=== PATIENT | male | born 1930 | race Caucasian/White ===

== ENCOUNTER 2017-01-20 15:17 | Emergency (ER) | payer OTHER ==
--- NOTE | 2017-01-20 16:52 | DIAGNOSTIC IMAGING REPORT ---
PROCEDURE: XR ABDOMEN 1 VIEW INDICATION: OBSTRUCTION TECHNIQUE: Single view upright abdomen. COMPARISON: 03/27/2012 FINDINGS: No free intraperitoneal air. Moderately increased amount of stool in the colon. Scattered air-fluid levels in nondilated, centralized small bowel loops. Plate-like right base atelectatic change. No suspicious calcifications or unusual abdominal mass effect. Intact osseous structures with mild degenerative endplate spurring. IMPRESSION: 1. Nonspecific bowel gas pattern with centralized fluid levels suggestive of ileus. 2. Gas and stool throughout the colon.
--- NOTE | 2017-01-20 17:32 | ED ORDER SUMMARY ---
..... Patient: KIRBY ARAGON OrderSheet [facility] VisitID: [id number] [place] [address] 86y, M Registration Date/Time: 01/20/2017 ORDER SHEET Weight: 98.8 kg (stated) Allergies: Morphine and Related GENERAL ORDERS: Abdomen 1V Urgent (16:13 01/20/2017 Lulú Ballard) (Ack 16:28 Gorge) (17:38 Stacy Roldan) MEDICATION ORDERS: - (enema of choice, may need to repeat (2 in total)) (16:13 01/20/2017 Lulú Ballard) (Ack 16:15 Lj) (Cancelled: Other17:12 Lj) IV FLUIDS: ORDER SHEET NOTES: [Electronically signed by Samson Gutierrez R.N. (17:42 01/20/2017)] [Electronically signed by Renuka Brown P.A.-C (17:58 01/20/2017)] [Electronically locked/signed by Samson Gutierrez R.N. (17:42 01/20/2017)]
--- NOTE | 2017-01-20 17:32 | ED CLINICAL REPORT ---
Clinical Report - Physicians/Mid Levels [facility] [address] [place] [address] 01/20/2017 15:20 [id number] Time Seen: 16:16 Jan 20 2017. Arrived- By private vehicle. Historian- patient. HISTORY OF PRESENT ILLNESS Chief Complaint: RECTAL PAIN. 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 The patient has had rectal pain but not had rectal bleeding. (patient presents with rectal pain for the last 4-5 days, patient has been recently on antibiotics over the last 8 days, he reports history of similar, having to be hospitalized previously appears in the past, for prolonged period of time due to constipation. Has been taking MiraLAX at home, which was working well previously, and now is having difficulty moving his bowels.). REVIEW OF SYSTEMS No dizziness, fainting episodes or blurred vision. All systems otherwise negative, except as recorded above. PAST HISTORY Problems: Immunizations. Constipation. Abdominal Pain. Prostate Disease. Hypercholesterolemia. Hypertension. Kidney disease. Additional Surgeries: Back Surgery. Colonoscopy. Hemorrhoidectomy. Hernia Repair. Neck Surgery. Shoulder Surgery. Medications: Atorvastatin Calcium Oral. Aspirin Oral. Finasteride Oral. MiraLax Oral. Lisinopril Oral 5 mg, daily. Allergies: Morphine and Related. (after shoulder surgery couldn't urinate). SOCIAL HISTORY Never smoker. No alcohol use or drug use. ADDITIONAL NOTES The nursing notes have been reviewed. PHYSICAL EXAM Vital Signs: 01/20/2017 16:15 BP: 138/81. HR: 67. RR: 18. O2 saturation: 99%. Temp: 98.1 F. Appearance: Alert. ENT: Nose normal. Pharynx normal. Neck: Normal inspection. CVS: Normal heart rate and rhythm. Heart sounds normal. Respiratory: No respiratory distress. Breath sounds normal. Back: Normal inspection. Rectal: Tender digital exam. Light brown stool. Rectal exam normal and nontender. (chaperoned exam with AMARA ALVARADO, midly hard stool in rectum, loosened). Skin: Skin warm. Normal skin color. Neuro: Oriented X 3. LABS, X-RAYS, AND EKG KUB: (IMPRESSION: 1. Nonspecific bowel gas pattern with centralized fluid levels suggestive of ileus. 2. Gas and stool throughout the colon. Electronically Final signed by:Antoinette Cavazos MD 01/20/2017 4:52:50 PM). PROGRESS AND PROCEDURES Course of Care: patient had a very large bowel movement output in the emergency department with enema, and this discharged home after improvement of his symptoms. Patient is stable. Symptoms better. Patient/family counseled. Disposition: Discharged. Condition: good. CLINICAL IMPRESSION Constipation INSTRUCTIONS OTC Medications: Colace 100 mg capsules (available over the counter): take 1 capsule orally, twice daily and for 10 days, as needed for constipation. No refill. Follow-up: Follow up with your doctor in three days. Understanding of the discharge instructions verbalized. (Electronically signed by Renuka Brown P.A.-C 01/20/2017 17:58)
--- NOTE | 2017-01-20 17:32 | ED ORDER SUMMARY ---
..... Patient: KIRBY ARAGON OrderSheet [facility] VisitID: [id number] [place] [address] 86y, M Registration Date/Time: 01/20/2017 ORDER SHEET Weight: 98.8 kg (stated) Allergies: Morphine and Related GENERAL ORDERS: Abdomen 1V Urgent (16:13 01/20/2017 Lulú Ballard) (Ack 16:28 Gorge) (17:38 Stacy Roldan) MEDICATION ORDERS: - (enema of choice, may need to repeat (2 in total)) (16:13 01/20/2017 Lulú Ballard) (Ack 16:15 Lj) (Cancelled: Other17:12 Lj) IV FLUIDS: ORDER SHEET NOTES: [Electronically signed by Samson Gutierrez R.N. (17:42 01/20/2017)] [Electronically signed by Renuka Brown P.A.-C (17:58 01/20/2017)] [Electronically locked/signed by Samson Gutierrez R.N. (17:42 01/20/2017)]
--- NOTE | 2017-01-20 17:32 | ED NURSING NOTES ---
Clinical Report - Nurses [facility] [address] [place] [address] 01/20/2017 15:20 Patient: KIRBY ARAGON TRIAGE Triage time 16:00 Jan 20 2017. Acuity: LEVEL 3. Chief Complaint: ABDOMINAL PAIN and CONSTIPATION. Alert. ULISSES COMA SCORE: [place] Coma Scale: 15- eyes open spontaneously (4); best verbal response- oriented x 4 (5); best motor response- obeys commands (6). --16:11 Norris Perkins R.N. 16:15 01/20/17. BP: 138/81. HR: 67. RR: 18. O2 saturation: 99%. Temp: 98.1 F. Pain level now 8/10. --16:16 Kiley Torres. Weight: 98.8 kg stated. Height/Length: 71 inches Per Patient. BMI: 30.4. --16:09 Norris Perkins R.N. Medications Lisinopril Oral 5 mg, daily. --16:05 Norris Perkins R.N. Finasteride Oral. MiraLax Oral. --16:06 Norris Perkins R.N. Aspirin Oral. --16:06 Norris Perkins R.N. Atorvastatin Calcium Oral. --16:06 Norris Perkins R.N. Allergies Morphine and Related. (after shoulder surgery couldn't urinate) --16:05 Norris Perkins R.N. Medication/allergy information source: the patient. --16:11 Norris Perkins R.N. History Arrived by private vehicle. Historian: patient. Unaccompanied. Primary physician (Stevie). ( Abdominal Pain. Pt thinks that he is constipated not having a BM in 5 days. Pt states that he was taking an antibiotic for a UTI and that always makes him constipated). Onset. (about 5 days ago). He has had constipation and abdominal pain. 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 SOCIAL HX: Smoker- current status unknown. History of drug use: marijuana. No alcohol use. No infectious disease exposure. ABUSE ASSESSMENT: No report of abuse. FALL RISK ASSESSMENT: Fall risk assessment completed. No fall risk identified. NUTRITIONAL RISK ASSESSMENT: The nutritional risk assessment revealed no deficiencies. FUNCTIONAL ASSESSMENT: Functional assessment: no impairments noted. LEARNING NEEDS ASSESSMENT: The learning needs assessment revealed no barriers. SKIN INTEGRITY ASSESSMENT: Skin integrity risk assessment completed. No skin integrity risk identified. --16:11 Norris Perkins R.N. PROBLEMS: Immunizations. Constipation. Abdominal Pain. Prostate Disease. Hypercholesterolemia. Hypertension. Kidney disease. --16:10 Norris Perkins R.N. ADDITIONAL SURGERIES: Back Surgery. Colonoscopy. Hemorrhoidectomy. Hernia Repair. Neck Surgery. Shoulder Surgery. --16:10 Norris Perkins R.N. Interventions ID band on patient. To treatment room. --16:11 Norris Perkins R.N. NURSING PROGRESS NOTES 17:19 01/20/2017 Soap suds enema * [place] qty 1 give one, may need two --17:19 Kiley Torres 17:40 01/20/17. ( Pt had large soft BM). --17:40 Samson Gutierrez R.N. DISPOSITION / DISCHARGE 17:40 01/20/17. Condition at departure: improved. The goals identified in the patient's plan of care were met. No learning barriers present. Discharge instructions provided and reviewed with the patient. Reviewed warnings. Reviewed medication(s). Treatments reviewed. Patient verbalized understanding. Written instructions provided in Persian. The patient was discharged by the physician ophthalmology assistant. He was discharged home. He left the Emergency Department ambulatory. Patient driving. FALL RISK ASSESSMENT: Fall risk assessment completed. No fall risk identified. --17:40 Samson Gutierrez R.N. 17:38 01/20/17. BP: 134/78. HR: 80. RR: 16. O2 saturation: 99% on room air. Temp: 98.2 F (oral). Pain level now: 0/10. --17:40 Samson Gutierrez R.N. 17:40 01/20/17. Departure time: 17:40 Jan 20 2017. --17:40 Samson Gutierrez R.N. Locked/Released at 01/20/2017 17:42 by Samson Gutierrez R.N.
--- NOTE | 2017-01-20 17:32 | ED CLINICAL REPORT ---
Clinical Report - Physicians/Mid Levels [facility] [address] [place] [address] 01/20/2017 15:20 [id number] Time Seen: 16:16 Jan 20 2017. Arrived- By private vehicle. Historian- patient. HISTORY OF PRESENT ILLNESS Chief Complaint: RECTAL PAIN. 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 The patient has had rectal pain but not had rectal bleeding. (patient presents with rectal pain for the last 4-5 days, patient has been recently on antibiotics over the last 8 days, he reports history of similar, having to be hospitalized previously appears in the past, for prolonged period of time due to constipation. Has been taking MiraLAX at home, which was working well previously, and now is having difficulty moving his bowels.). REVIEW OF SYSTEMS No dizziness, fainting episodes or blurred vision. All systems otherwise negative, except as recorded above. PAST HISTORY Problems: Immunizations. Constipation. Abdominal Pain. Prostate Disease. Hypercholesterolemia. Hypertension. Kidney disease. Additional Surgeries: Back Surgery. Colonoscopy. Hemorrhoidectomy. Hernia Repair. Neck Surgery. Shoulder Surgery. Medications: Atorvastatin Calcium Oral. Aspirin Oral. Finasteride Oral. MiraLax Oral. Lisinopril Oral 5 mg, daily. Allergies: Morphine and Related. (after shoulder surgery couldn't urinate). SOCIAL HISTORY Never smoker. No alcohol use or drug use. ADDITIONAL NOTES The nursing notes have been reviewed. PHYSICAL EXAM Vital Signs: 01/20/2017 16:15 BP: 138/81. HR: 67. RR: 18. O2 saturation: 99%. Temp: 98.1 F. Appearance: Alert. ENT: Nose normal. Pharynx normal. Neck: Normal inspection. CVS: Normal heart rate and rhythm. Heart sounds normal. Respiratory: No respiratory distress. Breath sounds normal. Back: Normal inspection. Rectal: Tender digital exam. Light brown stool. Rectal exam normal and nontender. (chaperoned exam with AMARA ALVARADO, midly hard stool in rectum, loosened). Skin: Skin warm. Normal skin color. Neuro: Oriented X 3. LABS, X-RAYS, AND EKG KUB: (IMPRESSION: 1. Nonspecific bowel gas pattern with centralized fluid levels suggestive of ileus. 2. Gas and stool throughout the colon. Electronically Final signed by:Antoinette Cavazos MD 01/20/2017 4:52:50 PM). PROGRESS AND PROCEDURES Course of Care: patient had a very large bowel movement output in the emergency department with enema, and this discharged home after improvement of his symptoms. Patient is stable. Symptoms better. Patient/family counseled. Disposition: Discharged. Condition: good. CLINICAL IMPRESSION Constipation INSTRUCTIONS OTC Medications: Colace 100 mg capsules (available over the counter): take 1 capsule orally, twice daily and for 10 days, as needed for constipation. No refill. Follow-up: Follow up with your doctor in three days. Understanding of the discharge instructions verbalized. (Electronically signed by Renuka Brown P.A.-C 01/20/2017 17:58)
--- NOTE | 2017-01-20 17:32 | ED NURSING NOTES ---
Clinical Report - Nurses [facility] [address] [place] [address] 01/20/2017 15:20 Patient: KIRBY ARAGON TRIAGE Triage time 16:00 Jan 20 2017. Acuity: LEVEL 3. Chief Complaint: ABDOMINAL PAIN and CONSTIPATION. Alert. ULISSES COMA SCORE: [place] Coma Scale: 15- eyes open spontaneously (4); best verbal response- oriented x 4 (5); best motor response- obeys commands (6). --16:11 Norris Perkins R.N. 16:15 01/20/17. BP: 138/81. HR: 67. RR: 18. O2 saturation: 99%. Temp: 98.1 F. Pain level now 8/10. --16:16 Kiley Torres. Weight: 98.8 kg stated. Height/Length: 71 inches Per Patient. BMI: 30.4. --16:09 Norris Perkins R.N. Medications Lisinopril Oral 5 mg, daily. --16:05 Norris Perkins R.N. Finasteride Oral. MiraLax Oral. --16:06 Norris Perkins R.N. Aspirin Oral. --16:06 Norris Perkins R.N. Atorvastatin Calcium Oral. --16:06 Norris Perkins R.N. Allergies Morphine and Related. (after shoulder surgery couldn't urinate) --16:05 Norris Perkins R.N. Medication/allergy information source: the patient. --16:11 Norris Perkins R.N. History Arrived by private vehicle. Historian: patient. Unaccompanied. Primary physician (Stevie). ( Abdominal Pain. Pt thinks that he is constipated not having a BM in 5 days. Pt states that he was taking an antibiotic for a UTI and that always makes him constipated). Onset. (about 5 days ago). He has had constipation and abdominal pain. 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 SOCIAL HX: Smoker- current status unknown. History of drug use: marijuana. No alcohol use. No infectious disease exposure. ABUSE ASSESSMENT: No report of abuse. FALL RISK ASSESSMENT: Fall risk assessment completed. No fall risk identified. NUTRITIONAL RISK ASSESSMENT: The nutritional risk assessment revealed no deficiencies. FUNCTIONAL ASSESSMENT: Functional assessment: no impairments noted. LEARNING NEEDS ASSESSMENT: The learning needs assessment revealed no barriers. SKIN INTEGRITY ASSESSMENT: Skin integrity risk assessment completed. No skin integrity risk identified. --16:11 Norris Perkins R.N. PROBLEMS: Immunizations. Constipation. Abdominal Pain. Prostate Disease. Hypercholesterolemia. Hypertension. Kidney disease. --16:10 Norris Perkins R.N. ADDITIONAL SURGERIES: Back Surgery. Colonoscopy. Hemorrhoidectomy. Hernia Repair. Neck Surgery. Shoulder Surgery. --16:10 Norris Perkins R.N. Interventions ID band on patient. To treatment room. --16:11 Norris Perkins R.N. NURSING PROGRESS NOTES 17:19 01/20/2017 Soap suds enema * ID qty 1 give one, may need two --17:19 Kiley Torres 17:40 01/20/17. ( Pt had large soft BM). --17:40 Samson Gutierrez R.N. DISPOSITION / DISCHARGE 17:40 01/20/17. Condition at departure: improved. The goals identified in the patient's plan of care were met. No learning barriers present. Discharge instructions provided and reviewed with the patient. Reviewed warnings. Reviewed medication(s). Treatments reviewed. Patient verbalized understanding. Written instructions provided in Turkmen. The patient was discharged by the physician faculty i on call medical assistant. He was discharged home. He left the Emergency Department ambulatory. Patient driving. FALL RISK ASSESSMENT: Fall risk assessment completed. No fall risk identified. --17:40 Samson Gutierrez R.N. 17:38 01/20/17. BP: 134/78. HR: 80. RR: 16. O2 saturation: 99% on room air. Temp: 98.2 F (oral). Pain level now: 0/10. --17:40 Samson Gutierrez R.N. 17:40 01/20/17. Departure time: 17:40 Jan 20 2017. --17:40 Samson Gutierrez R.N. Locked/Released at 01/20/2017 17:42 by Samson Gutierrez R.N.
--- NOTE | 2017-01-20 17:58 | ED MED RECONCILIATION SUMMARY ---
Patient: KIRBY ARAGON Medication Reconciliation Report [facility] VisitID: [id number] [address] [place] [address] 86y, M Registration Date/Time: 01/20/2017 Weight: 98.8 kg Height/Length: 71 in. BMI: 30.4 ALLERGIES: Morphine and Related The patient's Home Medications are listed below: THE FOLLOWING MEDICATIONS NEED TO BE RECONCILED: Aspirin Oral Atorvastatin Calcium Oral Finasteride Oral Lisinopril Oral 5 mg, daily MiraLax Oral The source(s) of the original Home Medication information: patient The following Medications were given to the patient in the Emergency Department: Soap suds enema MD qty 1, administered: 01/20/2017 5:19:00 PM The following Medications were prescribed to the patient: Colace 100 mg capsules (available over the counter): take 1 capsule orally, twice daily and for 10 days, as needed for constipation. No refill. -- Renuka Brown, PMatthiasA.-C
--- NOTE | 2017-01-20 17:58 | ED DISCHARGE INSTRUCTIONS ---
Patient: KIRBY ARAGON General Instructions [facility] VisitID: [id number] [place] [address] 86y, M Registration Date/Time: 01/20/2017 Constipation INSTRUCTIONS OTC Medications: Colace 100 mg capsules (available over the counter): take 1 capsule orally, twice daily and for 10 days, as needed for constipation. No refill. Follow-up: Follow up with your doctor in three days. Understanding of the discharge instructions verbalized. ADDITIONAL INFORMATION Constipation (Adult) Constipation is bowel movements that are less frequent than usual. Stools often become very hard and difficult to pass. This may lead to abdominal pain and bloating. It may also cause painful bowel movements. Constipation may be due to a diet thats low in fiber. Some medications, especially pain medications, can also cause it. Constipation may be treated with enemas, suppositories, laxatives or stool softeners. Your doctor will advise you which will work best for you. Follow the advice below to help avoid this problem in the future. Home Care Medication: Take any medicines as directed. Some laxatives are safe only for occasional use. Others can be taken on a regular basis. Talk to your doctor or pharmacist if you have questions. General Care: Prescription pain medications can cause constipation. If you are prescribed pain medications, ask the doctor whether you should also take a stool softener. A diet high in fiber with plenty of fluids helps to maintain regular, soft bowel movements. The following foods are good sources of dietary fiber: Cereals and breads: Whole grain cereal with bran, oatmeal, rolled oats, whole grain breads Fruits: All fruits (fresh and dried), raisins, prunes, apricots, berries, figs Vegetables: Any fresh vegetables, especially peas, broccoli, brussels sprouts, winter squash, green beans, cauliflower, wright beans, carrots Other: Popcorn, brown rice Drink plenty of water when you increase the amount of fiber you eat. Follow Up with your doctor or return to this facility if symptoms do not improve in the next few days. You may require further tests or a referral to a specialist. Get Prompt Medical Attention if any of the following occur: Fever over 100.4F (38C) Failure to resume normal bowel movements Increasing abdominal or back pain Nausea or vomiting Abdominal swelling Blood in the stool Weakness, dizziness or fainting Unexpected vaginal bleeding Fecal Impaction (Treated) Fecal Impaction is a severe form of constipation. There is a large amount of hard stool in the rectum that cannot be passed. Although your impaction has been relieved, it may be necessary to continue treatment at home as advised by your doctor. Follow the advice below to help avoid this problem in the future. Home Care Medication: Take any medicines as directed. Some laxatives are safe only for occasional use. Others can be taken on a regular basis. Talk to your doctor or pharmacist if you have questions. General Care: Prescription pain medications can cause constipation. If you are prescribed pain medications, ask the doctor whether you should also take a stool softener. A diet high in fiber with plenty of fluids helps to maintain regular, soft bowel movements. The following foods are good sources of dietary fiber: Cereals and breads: Whole-grain cereal with bran, oatmeal, rolled oats, whole-grain breads Fruits: All fruits (fresh and dried), raisins, prunes, apricots, berries, figs Vegetables: Any fresh vegetables, especially peas, broccoli, brussels sprouts, winter squash, green beans, cauliflower, wright beans, carrots Other: Popcorn, brown rice Drink plenty of water when you increase the amount of fiber you eat. Follow Up with your doctor or return to this facility if symptoms do not improve in the next few days. You may require further tests or a referral to a specialist. Get Prompt Medical Attention if any of the following occur: Fever over 100.4F (38C) Failure to resume normal bowel movements Increasing abdominal or back pain Nausea or vomiting Abdominal swelling Blood in the stool Weakness, dizziness or fainting Unexpected vaginal bleeding Docusate Sodium Oral tablet What is this medicine? DOCUSATE (doc CUE sayt) is stool softener. It helps prevent constipation and straining or discomfort associated with hard or dry stools. How should I use this medicine? Take this medicine by mouth with a glass of water. Follow the directions on the label. Take your doses at regular intervals. Do not take your medicine more often than directed. Talk to your travel registered nurse icu regarding the use of this medicine in children. While this medicine may be prescribed for children as young as 2 years for selected conditions, precautions do apply. What side effects may I notice from receiving this medicine? Side effects that you should report to your doctor or health critical care physician assistant as soon as possible: allergic reactions like skin rash, itching or hives, swelling of the face, lips, or tongue Side effects that usually do not require medical attention (report to your doctor or health critical care physician assistant if they continue or are bothersome): diarrhea stomach cramps throat irritation What may interact with this medicine? mineral oil What if I miss a dose? If you miss a dose, take it as soon as you can. If it is almost time for your next dose, take only that dose. Do not take double or extra doses. Where should I keep my medicine? Keep out of the reach of children. Store at room temperature between 15 and 30 degrees C (59 and 86 degrees F). Throw away any unused medicine after the expiration date. What should I tell my health care provider before I take this medicine? They need to know if you have any of these conditions: nausea or vomiting severe constipation stomach pain sudden change in bowel habit lasting more than 2 weeks an unusual or allergic reaction to docusate, other medicines, foods, dyes, or preservatives or trying to get breast-feeding What should I watch for while using this medicine? Do not use for more than one week without advice from your doctor or health critical care physician assistant. If your constipation returns, check with your doctor or health critical care physician assistant. Drink plenty of water while taking this medicine. Drinking water helps decrease constipation. Stop using this medicine and contact your doctor or health critical care physician assistant if you experience any rectal bleeding or do not have a bowel movement after use. These could be signs of a more serious condition. You have been given the following additional information: Constipation (Adult) Fecal Impaction, Treated Docusate Sodium Oral tablet (Electronically signed by Renuka Brown P.A.-C 01/20/2017 17:58)
--- NOTE | 2017-01-20 17:58 | ED MED RECONCILIATION SUMMARY ---
Patient: KIRBY ARAGON Medication Reconciliation Report [facility] VisitID: [id number] [address] [place] [address] 86y, M Registration Date/Time: 01/20/2017 Weight: 98.8 kg Height/Length: 71 in. BMI: 30.4 ALLERGIES: Morphine and Related The patient's Home Medications are listed below: THE FOLLOWING MEDICATIONS NEED TO BE RECONCILED: Aspirin Oral Atorvastatin Calcium Oral Finasteride Oral Lisinopril Oral 5 mg, daily MiraLax Oral The source(s) of the original Home Medication information: patient The following Medications were given to the patient in the Emergency Department: Soap suds enema NV qty 1, administered: 01/20/2017 5:19:00 PM The following Medications were prescribed to the patient: Colace 100 mg capsules (available over the counter): take 1 capsule orally, twice daily and for 10 days, as needed for constipation. No refill. -- Renuka Brown, PMatthiasA.-C
--- NOTE | 2017-01-20 17:58 | ED MAR SUMMARY ---
..... Medication Administration Record [facility] [address] [place] [address] Patient: KIRBY ARAGON Visit ID: [id number] 86y, M Weight: 98.8 kg Height/Length: 71 in BMI: 30.4 ALLERGIES: Morphine and Related Given 17:19 01/20/2017 Kiley Torres, Medication Administered: Soap suds enema *, Dose: qty 1 * [place].
--- NOTE | 2017-01-20 17:58 | ED DISCHARGE INSTRUCTIONS ---
Patient: KIRBY ARAGON General Instructions VisitID: [id number] [place] [address] 86y, M Registration Date/Time: 01/20/2017 Constipation INSTRUCTIONS OTC Medications: Colace 100 mg capsules (available over the counter): take 1 capsule orally, twice daily and for 10 days, as needed for constipation. No refill. Follow-up: Follow up with your doctor in three days. Understanding of the discharge instructions verbalized. ADDITIONAL INFORMATION Constipation (Adult) Constipation is bowel movements that are less frequent than usual. Stools often become very hard and difficult to pass. This may lead to abdominal pain and bloating. It may also cause painful bowel movements. Constipation may be due to a diet thats low in fiber. Some medications, especially pain medications, can also cause it. Constipation may be treated with enemas, suppositories, laxatives or stool softeners. Your doctor will advise you which will work best for you. Follow the advice below to help avoid this problem in the future. Home Care Medication: Take any medicines as directed. Some laxatives are safe only for occasional use. Others can be taken on a regular basis. Talk to your doctor or pharmacist if you have questions. General Care: Prescription pain medications can cause constipation. If you are prescribed pain medications, ask the doctor whether you should also take a stool softener. A diet high in fiber with plenty of fluids helps to maintain regular, soft bowel movements. The following foods are good sources of dietary fiber: Cereals and breads: Whole grain cereal with bran, oatmeal, rolled oats, whole grain breads Fruits: All fruits (fresh and dried), raisins, prunes, apricots, berries, figs Vegetables: Any fresh vegetables, especially peas, broccoli, brussels sprouts, winter squash, green beans, cauliflower, wright beans, carrots Other: Popcorn, brown rice Drink plenty of water when you increase the amount of fiber you eat. Follow Up with your doctor or return to this facility if symptoms do not improve in the next few days. You may require further tests or a referral to a specialist. Get Prompt Medical Attention if any of the following occur: Fever over 100.4F (38C) Failure to resume normal bowel movements Increasing abdominal or back pain Nausea or vomiting Abdominal swelling Blood in the stool Weakness, dizziness or fainting Unexpected vaginal bleeding Fecal Impaction (Treated) Fecal Impaction is a severe form of constipation. There is a large amount of hard stool in the rectum that cannot be passed. Although your impaction has been relieved, it may be necessary to continue treatment at home as advised by your doctor. Follow the advice below to help avoid this problem in the future. Home Care Medication: Take any medicines as directed. Some laxatives are safe only for occasional use. Others can be taken on a regular basis. Talk to your doctor or pharmacist if you have questions. General Care: Prescription pain medications can cause constipation. If you are prescribed pain medications, ask the doctor whether you should also take a stool softener. A diet high in fiber with plenty of fluids helps to maintain regular, soft bowel movements. The following foods are good sources of dietary fiber: Cereals and breads: Whole-grain cereal with bran, oatmeal, rolled oats, whole-grain breads Fruits: All fruits (fresh and dried), raisins, prunes, apricots, berries, figs Vegetables: Any fresh vegetables, especially peas, broccoli, brussels sprouts, winter squash, green beans, cauliflower, wright beans, carrots Other: Popcorn, brown rice Drink plenty of water when you increase the amount of fiber you eat. Follow Up with your doctor or return to this facility if symptoms do not improve in the next few days. You may require further tests or a referral to a specialist. Get Prompt Medical Attention if any of the following occur: Fever over 100.4F (38C) Failure to resume normal bowel movements Increasing abdominal or back pain Nausea or vomiting Abdominal swelling Blood in the stool Weakness, dizziness or fainting Unexpected vaginal bleeding Docusate Sodium Oral tablet What is this medicine? DOCUSATE (doc CUE sayt) is stool softener. It helps prevent constipation and straining or discomfort associated with hard or dry stools. How should I use this medicine? Take this medicine by mouth with a glass of water. Follow the directions on the label. Take your doses at regular intervals. Do not take your medicine more often than directed. Talk to your supervisor plate pasting regarding the use of this medicine in children. While this medicine may be prescribed for children as young as 2 years for selected conditions, precautions do apply. What side effects may I notice from receiving this medicine? Side effects that you should report to your doctor or health child caregiver as soon as possible: allergic reactions like skin rash, itching or hives, swelling of the face, lips, or tongue Side effects that usually do not require medical attention (report to your doctor or health child caregiver if they continue or are bothersome): diarrhea stomach cramps throat irritation What may interact with this medicine? mineral oil What if I miss a dose? If you miss a dose, take it as soon as you can. If it is almost time for your next dose, take only that dose. Do not take double or extra doses. Where should I keep my medicine? Keep out of the reach of children. Store at room temperature between 15 and 30 degrees C (59 and 86 degrees F). Throw away any unused medicine after the expiration date. What should I tell my health care provider before I take this medicine? They need to know if you have any of these conditions: nausea or vomiting severe constipation stomach pain sudden change in bowel habit lasting more than 2 weeks an unusual or allergic reaction to docusate, other medicines, foods, dyes, or preservatives or trying to get breast-feeding What should I watch for while using this medicine? Do not use for more than one week without advice from your doctor or health child caregiver. If your constipation returns, check with your doctor or health child caregiver. Drink plenty of water while taking this medicine. Drinking water helps decrease constipation. Stop using this medicine and contact your doctor or health child caregiver if you experience any rectal bleeding or do not have a bowel movement after use. These could be signs of a more serious condition. You have been given the following additional information: Constipation (Adult) Fecal Impaction, Treated Docusate Sodium Oral tablet (Electronically signed by Renuka Brown P.A.-C 01/20/2017 17:58)
--- NOTE | 2017-01-20 17:58 | ED MAR SUMMARY ---
..... Medication Administration Record [facility] [address] [place] [address] Patient: KIRBY ARAGON Visit ID: [id number] 86y, M Weight: 98.8 kg Height/Length: 71 in BMI: 30.4 ALLERGIES: Morphine and Related Given 17:19 01/20/2017 Kiley Torres, Medication Administered: Soap suds enema *, Dose: qty 1 * [place].
== END 2017-01-20 17:40 | disposition home or self-care (01) ==
LOC: ED SRH 15:17
DX: K59.00 Constipation, unspecified (principal); E78.00 Pure hypercholesterolemia, unspecified; I10 Essential (primary) hypertension; Z79.82 Long term (current) use of aspirin; Z79.899 Other long term (current) drug therapy; Z88.5 Allergy status to narcotic agent